=== PATIENT | female | born 1980 | race Caucasian/White ===

== ENCOUNTER 2016-12-30 20:26 | Emergency (ER) | payer OTHER ==
[~2016-12-30] VITALS: Ht 162.6 cm; Wt 60.0 kg
[2016-12-30 20:42] VITALS: Ht 162.6 cm; Wt 60.0 kg
[2016-12-30] MEDS ORDERED: DIPHTH/TET/ACEL PERTUSS (ADULT) 0.5 ML VIAL IM* ONE (21:00)
--- NOTE | 2016-12-30 21:06 | ERD ---
ER Documentation Chief Complaint Date/Time DATE: 12/30/16 TIME: 20:57 Chief Complaint lt index finger needle stick while at work HPI 36 yo female, an employee here, comes in with left index finger stick due to a k wire that occurred about 20 minutes ago. She states that she was in the surgery at the time and the K wire had actually cause a superficial laceration at the tip of the left index finger. She is right-handed. She states she did irrigate the wound with Betadine as well. Patient was under at that time, she states that there is no history of HIV hepatitis C that they are aware of. Patient states she has not had any history of hepatitis C or HIV and her vaccinations are up-to-date but does not recall her last tetanus shot. ROS All systems reviewed and are negative except as per history of present illness. Medications Home Meds Active Scripts Dolutegravir Sodium (Tivicay) 50 Mg Tablet, 50 MG PO DAILY, #30 TAB Prov:GORDY EUCEDA PA-C 12/30/16 Emtricitabine* (Emtriva*) 200 Mg Cap, 200 MG PO DAILY, #30 CAP Prov:GORDY EUCEDA PA-C 12/30/16 Tenofovir Disoproxil Fumarate (Viread) 300 Mg Tablet, 300 MG PO DAILY, #30 TAB Prov:GORDY EUCEDA PA-C 12/30/16 PMhx/Soc History of Surgery: Yes (Cholecystectomy, ) Hx Respiratory Disorders: Yes (Asthma) Hx Alcohol Use: No Hx Substance Use: No Hx Tobacco Use: No Physical Exam Vitals Vital Signs Date Time Temp Pulse Resp B/P Pulse Ox O2 Delivery O2 Flow Rate FiO2 12/30/16 22:40 73 16 147/76 99 Room Air 12/30/16 20:42 97.7 82 18 121/77 99 Physical Exam General: Well-developed, well-nourished. The patient appears in no acute distress. HEENT: Head is normocephalic, atraumatic. No scleral icterus. Neck: Supple. Nontender. Lungs: Clear to auscultation. Normal air movement. Heart: Regular rate and rhythm. S1 and S2 are normal. No murmurs, gallops, or rubs. Abdomen: Nondistended. Extremities: No clubbing or cyanosis. Moving extremities x 4. No weakness. Neurologic: Alert and oriented 3. No focal deficits. Normal speech and gait. Skin: There is a 2 cm superficial laceration at the tip of the left index finger.. Result Diagram: 12/30/162114 Results 24 hrs Laboratory Tests Test 12/30/16 21:15 White Blood Count 6.410^3/ul Red Blood Count 4.6210^6/ul Hemoglobin 11.0g/dl Hematocrit 35.0% Mean Corpuscular Volume 75.8fl Mean Corpuscular Hemoglobin 23.8pg Mean Corpuscular Hemoglobin Concent 31.4g/dl Red Cell Distribution Width 16.0% Platelet Count 76096^3/UL Mean Platelet Volume 10.4fl Neutrophils % 55.8% Lymphocytes % 31.4% Monocytes % 7.1% Eosinophils % 5.0% Basophils % 0.5% Nucleated Red Blood Cells % 0.0/100WBC Neutrophils # 3.610^3/ul Lymphocytes # 2.010^3/ul Monocytes # 0.510^3/ul Eosinophils # 0.310^3/ul Basophils # 0.010^3/ul Nucleated Red Blood Cells # 0.010^3/ul Total Bilirubin 0.0mg/dl Direct Bilirubin 0.00mg/dl Indirect Bilirubin 0.0mg/dl Aspartate Amino Transf (AST/SGOT) 23IU/L Alanine Aminotransferase (ALT/SGPT) 39IU/L Alkaline Phosphatase 79IU/L Total Protein 7.8g/dl Albumin 4.3g/dl Hepatitis B Surface Antigen NEGATIVE Hepatitis C Antibody NEGATIVE HIV (1&2) Antibody NEGATIVE Current Medications Medications (Trade) Dose Ordered Sig/[place] Route PRN Reason Start Time Stop Time Status Last Admin Dose Admin Diphtheria/ Tetanus/Acell Pertussis (Adacel) 0.5 ml ONCE ONCE IM* 12/30/16 21:00 12/30/16 21:01 DC 12/30/16 21:22 Procedures/MDM 36-year-old female comes in with a superficial laceration to the left index finger from a K wire during surgery, she is an employee here. Patient was exposed to a K wire today, which was updated for her tetanus vaccination. I believe the patient is at low risk, she did obtain consent for blood draw with the patient. I have offered her post exposure prophylaxis and that she may take and she is aware of the risks of taking the medications. Labs are normal at this time patient stable for discharge. Patient status is negative for HIV and hepatitis C. Departure Diagnosis: Primary Impression: Needlestick injury accident Condition: Good GORDY EUCEDA PA-C Dec 30, 2016 21:05
[2016-12-30 21:32] LABS: BASOPHILS % 0.5 % (0.0-2.0); EOSINOPHILS # 0.3 10^3/ul (0.0-0.5); LYMPHOCYTES % 31.4 % (15.0-51.0); MEAN CORPUSCULAR HEMOGLOBIN 23.8 pg (29.0-33.0); MEAN CORPUSCULAR HGB CONC 31.4 g/dl (32.0-37.0); MEAN CORPUSCULAR VOLUME 75.8 fl (82.0-101.0); MEAN PLATELET VOLUME 10.4 fl (7.4-10.4); MONOCYTE # 0.5 10^3/ul (0.3-0.9); MONOCYTES % 7.1 % (0.0-11.0); NEUTROPHIL # 3.6 10^3/ul (1.6-7.5); NEUTROPHILS % 55.8 % (39.0-77.0); PLATELET COUNT 331 10^3/UL (140-415); RED BLOOD COUNT 4.62 10^6/ul (4.20-5.40); WHITE BLOOD COUNT 6.4 10^3/ul (4.8-10.8)
[2016-12-30 22:07] LABS: ALANINE AMINOTRANSFERASE 39 IU/L (13-69); ALBUMIN 4.3 g/dl (3.3-4.9); ALKALINE PHOSPHATASE 79 IU/L (42-121); ASPARTATE AMINO TRANSFERASE 23 IU/L (15-46); TOTAL PROTEIN 7.8 g/dl (6.1-8.1)
[2016-12-30] MEDS ORDERED: TENO300T2 PO (22:31)
[2016-12-30] MEDS ORDERED: EMTR200 PO (22:31)
[2016-12-30] MEDS ORDERED: DOLU50TA PO (22:31)
[2016-12-30 22:40] VITALS: BP 147/76; PULSE 73; RESP 16
== END 2016-12-30 22:41 | disposition home or self-care (01) ==
LOC: FTE 20:26
DX: S61.231A Puncture wound without foreign body of left index finger without damage to nail, initial encounter (principal); J45.909 Unspecified asthma, uncomplicated; W46.0XXA Contact with hypodermic needle, initial encounter; Y92.89 Other specified places as the place of occurrence of the external cause; Z23 Encounter for immunization
CPT/HCPCS: 36415; 80076; 85025; 86703; 86706; 86803; 87340; 90471; 90715